=== PATIENT | female | born 1980 | race Caucasian/White ===

== ENCOUNTER 2016-04-28 16:04 | Emergency (ER) | payer BC ==
[2016-04-28] MEDS ORDERED: ASPIRIN 81 MG TABLET, CHEWABLE PO ONE (16:40)
--- NOTE | 2016-04-28 16:40 | ER Document Report ---
ED Medical Screen (RME) - General Stated Complaint: VOMITING/CHEST PAIN Time seen by provider: 16:36 Mode of Arrival: Wheelchair Information source: Patient Notes: 36-year-old female presents to ED for diarrhea 4 today chest pain 1/5 since 2: 30 PM. States that she is chest pain improved greatly after she vomited She states she started vomiting 5 since she's been to the ED. She states she also has a headache 5/5 that started last night. Last menstrual period 04/20/2016. Denies history of reflux or stomach ulcers. I have greeted and performed a rapid initial assessment of this patient. A comprehensive ED assessment and evaluation of the patient, analysis of test results and completion of medical decision making process will be conducted by an additional ED providers. TRAVEL OUTSIDE OF THE [place] IN LAST 30 DAYS: No - Related Data Allergies/Adverse Reactions: amoxicillin [Amoxicillin] Allergy (Mild, Verified 04/28/16 16:36) Penicillins Allergy (Mild, Verified 04/28/16 16:36) Past Medical History - Past Medical History Cardiac Medical History: Reports: Hx Hypertension Denies: Hx Coronary Artery Disease Pulmonary Medical History: Reports: Hx Asthma - as a child Endocrine Medical History: Denies: Hx Diabetes Mellitus Type 1, Hx Diabetes Mellitus Type 2 Renal/ Medical History: Reports: Hx Ovarian Cysts Past Surgical History: Reports: Hx Appendectomy, Hx Gynecologic Surgery - ovarian cyst removal - Immunizations Immunizations up to date: Yes Hx Diphtheria, Pertussis, Tetanus Vaccination: Yes Physical Exam - Vital signs Vitals: Temp Pulse Resp BP Pulse Ox 99.5 F 99 18 107/61 100 04/28/16 16:20 04/28/16 16:20 04/28/16 16:20 04/28/16 16:20 04/28/16 16:20 Course - Vital Signs Vital signs: Temp Pulse Resp BP Pulse Ox 99.5 F 99 18 107/61 100 04/28/16 16:20 04/28/16 16:20 04/28/16 16:20 04/28/16 16:20 04/28/16 16:20
[2016-04-28] MEDS ORDERED: FAMOTIDINE 20 MG TABLET PO ONE (16:41)
[2016-04-28] MEDS ORDERED: ONDANSETRON 4 MG TAB.RAPDIS PO ONE (16:41)
[2016-04-28 17:09] LABS: ABSOLUTE LYMPHOCYTES (AUTO) 0.3 10^3/uL (0.5-4.7); ABSOLUTE NEUT (AUTO) 4.3 10^3/uL (1.7-8.2); BASOPHILS % (AUTO) 0.1 % (0-2); EOSINOPHILS % (AUTO) 0.1 % (0-6); HEMATOCRIT 38.4 % (36.0-47.0); HEMOGLOBIN 12.9 g/dL (12.0-15.5); HGB HCT DIFFERENCE 0.3; LYMPHOCYTES % (AUTO) 5.9 % (13-45); MEAN CORPUSCULAR HEMOGLOBIN 29.4 pg (27.0-33.4); MEAN CORPUSCULAR HGB CONC 33.7 g/dL (32.0-36.0); MEAN CORPUSCULAR VOLUME 87 fl (80-97); MONOCYTES % (AUTO) 0.5 % (3-13); RED CELL DISTRIBUTION WIDTH 13.5 % (11.5-14.0); SEGMENTED NEUTROPHILS % (AUTO) 93.4 % (42-78); WHITE BLOOD COUNT 4.6 10^3/uL (4.0-10.5)
[2016-04-28 17:32] LABS: ALANINE AMINOTRANSFERASE 32 U/L (9-52); ALBUMIN 4.1 g/dL (3.5-5.0); ALKALINE PHOSPHATASE 65 U/L (38-126); ANION GAP 8 (5-19); ASPARTATE AMINO TRANSFERASE 33 U/L (14-36); BILIRUBIN,TOTAL 0.7 mg/dL (0.2-1.3); BLOOD UREA NITROGEN 7 mg/dL (7-20); CALCIUM 9.6 mg/dL (8.4-10.2); CARBON DIOXIDE 28 mmol/L (22-30); CHLORIDE 102 mmol/L (98-107); CREATINE KINASE 144 U/L (30-135); GLUCOSE 98 mg/dL (75-110); LIPASE 73.8 U/L (23-300); MAGNESIUM 1.5 mg/dL (1.6-2.3); POTASSIUM 4.1 mmol/L (3.6-5.0); SODIUM 138.1 mmol/L (137-145); TOTAL PROTEIN 6.5 g/dL (6.3-8.2)
--- NOTE | 2016-04-28 17:34 | ER Document Report ---
ED General - General Chief Complaint: Nausea/Vomiting/Diarrhea Stated Complaint: VOMITING/CHEST PAIN Time seen by provider: 17:20 Mode of Arrival: Wheelchair Information source: Patient Notes: 36-year-old female who reports diffuse body aches and mild headache beginning last night then 4 episodes of diarrhea earlier today. Further prior arrival she developed a sensation of throbbing in her lower chest that resolved after she vomited once here. She reports nausea feels better now she has had no further diarrhea since arrival here. She denies fever, chills, cough, shortness of breath, earache, sore throat, abdominal pain, back pain, hematemesis, hematochezia, or melena. Physical Exam: General: Alert, appears well. HEENT: Normocephalic. Atraumatic. PERRLA. Extraocular movements intact. Oropharynx clear. Neck: Supple. Non-tender. Respiratory: No respiratory distress. Clear and equal breath sounds bilaterally. Cardiovascular: Regular rate and rhythm. Abdominal: Normal Inspection. Soft, non-tender. No distension. Normal Bowel Sounds. Back: Non-tender. No deformity or step off. Extremities: Moves all four extremities. Upper extremities: Normal inspection. Non-tender. Normal color. Normal ROM. Normal temperature. Lower extremities: Normal inspection. Non-tender. No edema. Normal color. Normal ROM. Normal temperature. Neurological: Speech clear mentation normal carriage rider strength 5 out of 5 equal both upper extremities motor function 5 out of 5 equal both lower extremities Psychological: Normal affect. Normal Mood. Skin: Warm. Dry. Normal color. TRAVEL OUTSIDE OF THE [place] IN LAST 30 DAYS: No - Related Data Allergies/Adverse Reactions: amoxicillin [Amoxicillin] Allergy (Mild, Verified 04/28/16 16:36) Penicillins Allergy (Mild, Verified 04/28/16 16:36) Past Medical History - General Information source: Patient - Social History Smoking Status: Never Smoker Chew tobacco use (# tins/day): No Frequency of alcohol use: None Drug Abuse: None Family History: Arthritis, CAD, DM, Hypertension Patient has suicidal ideation: No Patient has homicidal ideation: No - Past Medical History Cardiac Medical History: Reports: Hx Hypertension Denies: Hx Coronary Artery Disease Pulmonary Medical History: Reports: Hx Asthma - as a child Endocrine Medical History: Denies: Hx Diabetes Mellitus Type 1, Hx Diabetes Mellitus Type 2 Renal/ Medical History: Reports: Hx Ovarian Cysts. Denies: Hx Peritoneal Dialysis Past Surgical History: Reports: Hx Appendectomy, Hx Gynecologic Surgery - ovarian cyst removal - Immunizations Immunizations up to date: Yes Hx Diphtheria, Pertussis, Tetanus Vaccination: Yes Review of Systems - Review of Systems Constitutional: See HPI, Malaise EENT: denies: Ear pain, Throat pain Cardiovascular: See HPI. denies: Dyspnea, Syncope Respiratory: denies: Cough, Short of breath Gastrointestinal: denies: Abdominal pain, Blood in vomit, Black stools, Rectal bleeding Genitourinary: denies: Burning, Dysuria Female Genitourinary: denies: Vaginal discharge, Vaginal bleeding Musculoskeletal: See HPI. denies: Back pain Skin: denies: Rash Hematologic/Lymphatic: denies: Swollen glands Neurological/Psychological: denies: Weakness, Numbness Physical Exam - Vital signs Vitals: Temp Pulse Resp BP Pulse Ox 99.5 F 99 18 107/61 100 04/28/16 16:20 04/28/16 16:20 04/28/16 16:20 04/28/16 16:20 04/28/16 16:20 Course - Re-evaluation Re-evalutation: 04/28/16 18:15 Patient complains of chest pain but symptoms are not remotely suspicious for acute coronary syndrome. Believe this is related to gastric irritation from a viral gastroenteritis. She will be prescribed Phenergan for nausea and instructed to use [id number] regimens for diarrhea and will provide her with outpatient physician follow-up - Vital Signs Vital signs: Temp Pulse Resp BP Pulse Ox 99.5 F 99 18 107/61 100 04/28/16 16:20 04/28/16 16:20 04/28/16 16:20 04/28/16 16:20 04/28/16 16:20 - Laboratory Result Diagrams: 04/28/16 16:45 04/28/16 16:45 Laboratory results interpreted by me: 04/28/16 04/28/16 16:45 16:45 Seg Neutrophils % 93.4 H Lymphocytes % 5.9 L Monocytes % 0.5 L Absolute Lymphocytes 0.3 L Absolute Monocytes 0.0 L Magnesium 1.5 L Creatine Kinase 144 H - Diagnostic Test Radiology reviewed: Image reviewed, Reports reviewed - EKG Interpretation by Me Additional EKG results interpreted by me: 04/28/16 17:38 EKG reviewed by myself shows sinus rhythm at 90 with no acute changes Discharge - Discharge Clinical Impression: Gastroenteritis Condition: Stable Disposition: HOME, SELF-CARE Instructions: Gastroenteritis (adult) ([facility]) Prescriptions: Promethazine HCl [Phenergan 25 mg Tablet] 1 tab PO Q6H PRN #15 tablet PRN Reason: Forms: Return to Work Referrals: [facility] [Provider Group] - Follow up as needed
[2016-04-28 17:43] LABS: CREATINE KINASE MB 0.99 ng/mL (<4.55)
[2016-04-28 17:46] LABS: TROPONIN I < 0.012 ng/mL
[2016-04-28 18:44] VITALS: BP 96/69
--- NOTE | 2016-04-29 05:37 | EKG REPORT ---
SEVERITY:- NORMAL ECG - SINUS RHYTHM : Confirmed by: Bobbi Calderon MD 29-Apr-2016 05:37:04
== END 2016-04-28 18:40 | disposition home or self-care (01) ==
LOC: ER 16:04
DX: K52.9 Noninfective gastroenteritis and colitis, unspecified (principal); R11.2 Nausea with vomiting, unspecified; R19.7 Diarrhea, unspecified; R07.9 Chest pain, unspecified; R51 Headache; R53.81 Other malaise; I10 Essential (primary) hypertension; Z88.0 Allergy status to penicillin
CPT/HCPCS: 93005; 99284; 36415; 82553; 82550; 83690; 83735; 84703; 85025; 80053; 84484; 71020; 93010; S0119

== ENCOUNTER 2016-06-14 00:40 | Emergency (ER) | payer BC ==
--- NOTE | 2016-06-14 03:11 | ER Document Report ---
ED General - General Chief Complaint: Toothache Stated Complaint: TOOTHACHE Mode of Arrival: Ambulatory Information source: Patient Notes: 36-year-old female presents with complaints of dental pain. Patient notes she gets canker sores often, a temporary crown fell off on the left upper molar, denies any fevers or chills denies any bad taste in her mouth, denies any swelling TRAVEL OUTSIDE OF THE [place] IN LAST 30 DAYS: No - HPI Onset: Last week Onset/Duration: Persistent Quality of pain: Achy Severity: Mild Pain Level: 1 Associated symptoms: Other Exacerbated by: Denies Relieved by: Denies Similar symptoms previously: Yes Recently seen / treated by doctor: Yes - Related Data Allergies/Adverse Reactions: amoxicillin [Amoxicillin] Allergy (Mild, Verified 04/28/16 16:36) Penicillins Allergy (Mild, Verified 04/28/16 16:36) Past Medical History - Social History Smoking Status: Never Smoker Cigarette use (# per day): No Chew tobacco use (# tins/day): No Smoking Education Provided: No Family History: Arthritis, CAD, DM, Hypertension - Past Medical History Cardiac Medical History: Reports: Hx Hypertension Denies: Hx Coronary Artery Disease Pulmonary Medical History: Reports: Hx Asthma - as a child Endocrine Medical History: Denies: Hx Diabetes Mellitus Type 1, Hx Diabetes Mellitus Type 2 Renal/ Medical History: Reports: Hx Ovarian Cysts. Denies: Hx Peritoneal Dialysis Past Surgical History: Reports: Hx Appendectomy, Hx Gynecologic Surgery - ovarian cyst removal - Immunizations Immunizations up to date: Yes Hx Diphtheria, Pertussis, Tetanus Vaccination: Yes Review of Systems - Review of Systems Notes: REVIEW OF SYSTEMS: CONSTITUTIONAL : Denies fever, chills, or sweats. Denies recent illness. EENT: Admits to dental pain CARDIOVASCULAR: Denies chest pain. Denies palpitations or racing or irregular heart beat. Denies ankle edema. RESPIRATORY: Denies cough, cold, or chest congestion. Denies shortness of breath, difficulty breathing, or wheezing. GASTROINTESTINAL: Denies abdominal pain or distention. Denies nausea, vomiting , or diarrhea. Denies blood in vomitus, stools, or per rectum. Denies black, tarry stools. Denies constipation. GENITOURINARY: Denies difficulty urinating, painful urination, burning, frequency, blood in urine, or discharge. FEMALE GENITOURINARY: Denies vaginal bleeding, heavy or abnormal periods, irregular periods. Denies vaginal discharge or odor. MUSCULOSKELETAL: Denies back or neck pain or stiffness. Denies joint pain or swelling. SKIN: Denies rash, lesions or sores. HEMATOLOGIC : Denies easy bruising or bleeding. LYMPHATIC: Denies swollen, enlarged glands. NEUROLOGICAL: Denies confusion or altered mental status. Denies passing out or loss of consciousness. Denies dizziness or lightheadedness. Denies headache. Denies weakness or paralysis or loss of use of either side. Denies problems with gait or speech. Denies sensory loss, numbness, or tingling. Denies seizures. PSYCHIATRIC: Denies anxiety or stress. Denies depression, suicidal ideation, or homicidal ideation. ALL OTHER SYSTEMS REVIEWED AND NEGATIVE. Dictation was performed using [employer] voice recognition software PHYSICAL EXAMINATION: GENERAL: Well-appearing, well-nourished and in no acute distress. HEAD: Atraumatic, normocephalic. EYES: Pupils equal round and reactive to light, extraocular movements intact, conjunctiva are normal. ENT: No abscess no swelling no tenderness on palpation of the teeth, canker sore noted at the opening of the mouth near the left upper gums NECK: Normal range of motion, supple without lymphadenopathy LUNGS: Breath sounds clear to auscultation bilaterally and equal. No wheezes rales or rhonchi. HEART: Regular rate and rhythm without murmurs ABDOMEN: Soft, nontender, nondistended abdomen. No guarding, no rebound. No masses appreciated. Female : deferred Musculoskeletal: Normal range of motion, no pitting or edema. No cyanosis. NEUROLOGICAL: Cranial nerves grossly intact. Normal speech, normal gait. Normal sensory, motor exams PSYCH: Normal mood, normal affect. SKIN: Warm, Dry, normal turgor, no rashes or lesions noted. Physical Exam - Vital signs Vitals: Temp Pulse Resp BP Pulse Ox 98.4 F 76 20 137/81 H 100 06/14/16 00:51 06/14/16 00:51 06/14/16 00:51 06/14/16 00:51 06/14/16 00:51 Course - Re-evaluation Re-evalutation: 06/14/16 03:19 Patient will be started on antibiotics given chlorhexidine mouthwash and pain control otherwise looks well is in no distress. Very strict return precautions provided to the patient regarding airway protection and infectious process After performing a Medical Screening Examination, I estimate there is LOW risk for a DEEP SPACE INFECTION (e.g., DUYEN'S ANGINA OR RETROPHARYNGEAL ABSCESS), MENINGITIS, INTRACRANIAL HEMORRHAGE, or AIRWAY COMPROMISE, thus I consider the discharge disposition reasonable. Also, there is no evidence or peritonitis, sepsis, or toxicity. I have reevaluated this patient multiple times and no significant life threatening changes are noted. The patient and I have discussed the diagnosis and risks, and we agree with discharging home with close follow-up with the understanding that symptoms and presentations can change. We also discussed returning to the Emergency Department immediately if new or worsening symptoms occur. We have discussed the symptoms which are most concerning (e.g., changing or worsening pain, trouble swallowing or breathing, neck stiffness or fever) that necessitate immediate return. - Vital Signs Vital signs: Temp Pulse Resp BP Pulse Ox 98.4 F 76 20 137/81 H 100 06/14/16 00:51 06/14/16 00:51 06/14/16 00:51 06/14/16 00:51 06/14/16 00:51 Discharge - Discharge Clinical Impression: Canker sore, Pain, dental Condition: Stable Disposition: HOME, SELF-CARE Instructions: Toothache ([facility]) Additional Instructions: Follow up with your physician tomorrow for further care or return to the ED IMMEDIATELY if symptoms worsen or new concerns occur. If you cannot afford to follow up with your primary care physician a list of low cost clinics have been provided at the end of your discharge papers as well. Prescriptions: Acetaminophen with Codeine [Tylenol #3 Tablet] 1 each PO Q4HP PRN #10 tablet PRN Reason: Chlorhexidine Gluconate 15 ml MM BID 10 Days Clindamycin HCl 300 mg PO Q6 #40 capsule
[2016-06-14 03:19] VITALS: BP 138/90
== END 2016-06-14 03:19 | disposition home or self-care (01) ==
LOC: ER 00:40
DX: K08.89 Other specified disorders of teeth and supporting structures (principal); K12.0 Recurrent oral aphthae; I10 Essential (primary) hypertension; Z98.890 Other specified postprocedural states; Z88.0 Allergy status to penicillin
CPT/HCPCS: 99282

== ENCOUNTER 2017-01-14 15:14 | Emergency (ER) | payer BC ==
[2017-01-14 15:46] VITALS: BP 108/74
--- NOTE | 2017-01-14 16:19 | ER Document Report ---
HPI - HPI Pain Level: 3 Notes: Patient is a 37-year-old female no significant past medical history presents ED complaining of nasal congestion, discharge, postnasal drip, irritated throat from the drip, sinus pressure, occasional dry nonproductive cough 3 weeks. Patient states that she has been using [id number] meds with minimal relief. Patient states that her symptoms were improving, but started to worsen over the last several days. Patient states that she still eating and drinking without difficulties. She still urinating normally and having normal bowel movements. Patient states that otherwise she feels well. She has an allergy to penicillins which causes angioedema. Denies any headache, fever, neck pain, chest pain, palpitations, syncope, shortness of breath, wheeze, dyspnea, abdominal pain, nausea/vomiting/diarrhea, urinary retention, dysuria, hematuria , or rash. - ROS Notes: REVIEW OF SYSTEMS: CONSTITUTIONAL : Denies fever, chills, or sweats. Denies recent illness. EENT: see hpi CARDIOVASCULAR: Denies chest pain. Denies palpitations or racing or irregular heart beat. Denies ankle edema. RESPIRATORY: see hpi. Denies shortness of breath, difficulty breathing, or wheezing. GASTROINTESTINAL: Denies abdominal pain or distention. Denies nausea, vomiting , or diarrhea. GENITOURINARY: Denies difficulty urinating, painful urination, burning, frequency, blood in urine, or discharge. MUSCULOSKELETAL: Denies back or neck pain or stiffness. Denies joint pain or swelling. SKIN: Denies rash, lesions or sores. NEUROLOGICAL: Denies confusion or altered mental status. Denies passing out or loss of consciousness. Denies dizziness or lightheadedness. Denies headache. Denies weakness or paralysis or loss of use of either side. Denies problems with gait or speech. Denies sensory loss, numbness, or tingling. ALL OTHER SYSTEMS REVIEWED AND NEGATIVE. Dictation was performed using [employer] voice recognition software - REPRODUCTIVE Reproductive: DENIES: : Past Medical History - Social History Smoking Status: Never Smoker Family History: Arthritis, CAD, DM, Hypertension - Past Medical History Cardiac Medical History: Reports: Hx Hypertension Denies: Hx Coronary Artery Disease Pulmonary Medical History: Reports: Hx Asthma - as a child Endocrine Medical History: Denies: Hx Diabetes Mellitus Type 1, Hx Diabetes Mellitus Type 2 Renal/ Medical History: Reports: Hx Ovarian Cysts. Denies: Hx Peritoneal Dialysis Past Surgical History: Reports: Hx Appendectomy, Hx Gynecologic Surgery - ovarian cyst removal - Immunizations Immunizations up to date: Yes Hx Diphtheria, Pertussis, Tetanus Vaccination: Yes Vertical Provider Document - CONSTITUTIONAL Agree With Documented VS: Yes Notes: PHYSICAL EXAMINATION: GENERAL: Well-appearing, well-nourished and in no acute distress. A&ox4 HEAD: Atraumatic, normocephalic. EYES: Pupils equal round and reactive to light, extraocular movements intact, sclera anicteric, conjunctiva are normal. ENT: EAC clear b/l. TM's intact b/l without erythema, fluid, or perforation. Nares patent and with yellow discharge. oropharynx clear without exudates. No tonsilar hypertrophy or erythema. Moist mucous membranes. + maxillary sinus tenderness. Uvula midline. No palatine shift. No tongue protrusion. NECK: Normal range of motion, supple without lymphadenopathy. No rigidity/ meningismus. LUNGS: Breath sounds clear to auscultation bilaterally and equal. No wheezes rales or rhonchi. HEART: Regular rate and rhythm without murmurs, rubs, gallops. Extremities: No cyanosis, clubbing, or edema b/l. Peripheral pulses 2+. Capillary refill less than 3 seconds. NEUROLOGICAL: Cranial nerves grossly intact. Normal speech, normal gait. Normal sensory, motor exams PSYCH: Normal mood, normal affect. SKIN: Warm, Dry, normal turgor, no rashes or lesions noted. - INFECTION CONTROL TRAVEL OUTSIDE OF THE [place] IN LAST 30 DAYS: No - RESPIRATORY O2 Sat by Pulse Oximetry: 100 Course - Re-evaluation Re-evalutation: 01/14/17 16:18 Patient is an afebrile, well-hydrated, 37-year-old female who presents the ED with acute sinusitis 3 weeks. Vitals stable. PE is otherwise unremarkable. Patient states that she has an intolerance to doxycycline and is allergic to penicillins. I will send her home with prescription for Zithromax. Low suspicion for any meningitis, sepsis, peritonsillar/pharyngeal abscess, respiratory compromise, Musa's, or other emergent systemic condition at this time. Patient is aware this condition can change from initial presentation and she needs to monitor symptoms closely. Conservative measures otherwise for symptoms. Recheck with your PCM in 3-5 days. Return to the ED with any worsening/concerning symptoms otherwise as reviewed in discharge. Patient is in agreement. - Vital Signs Vital signs: Temp Pulse Resp BP Pulse Ox 98.8 F 77 20 108/74 100 01/14/17 15:45 01/14/17 15:45 01/14/17 15:45 01/14/17 15:45 01/14/17 15:45 Discharge - Discharge Clinical Impression: Acute sinusitis Qualifiers: Sinusitis location: maxillary Recurrence: non-recurrent Qualified Code(s): J01.00 - Acute maxillary sinusitis, unspecified Condition: Stable Disposition: HOME, SELF-CARE Instructions: Sinusitis ([facility]), Azithromycin ([facility]) Additional Instructions: Maintain adequate fluid intake Take meds as directed tylenol/ibuprofen as needed over the counter cold medication as needed for symptoms Humidified air may help F/u: with your PCM in 3-5 days for a recheck Return to the ED with any fever, worsening pain, chest pain, palpitations, syncope, worsening SOLANO, neck pain/stiffness, shortness of breath, wheezing, drooling, trouble swallowing/breathing, abdominal pain, n/v/d, rash, or worsening/concerning symptoms otherwise. Prescriptions: Azithromycin [Zithromax 250 mg Tablet] 250 mg PO ASDIR PRN #6 tablet PRN Reason: Referrals: [facility] [Provider Group] - Follow up as needed [facility] [Provider Group] - Follow up as needed
== END 2017-01-14 16:38 | disposition home or self-care (01) ==
LOC: ER 15:14
DX: J01.00 Acute maxillary sinusitis, unspecified (principal); R05 Cough; I10 Essential (primary) hypertension; Z88.0 Allergy status to penicillin
CPT/HCPCS: 99283

== ENCOUNTER 2017-05-29 23:10 | Emergency (ER) | payer BC ==
[2017-05-29] MEDS ORDERED: LIDOCAINE 1% INJ-PF (10 MG/ML) 30 ML SDV INJ ONE (23:46)
--- NOTE | 2017-05-29 23:53 | ER Document Report ---
ED Wound - General Chief Complaint: Finger laceration Stated Complaint: FINGER INJURY Time Seen by Provider: 05/29/17 23:43 Notes: Patient is a 37 year female presenting to the emergency department with complaint of laceration to her right fifth finger. Patient states that just prior to arrival she was opening a can when her hand slipped and she cut the dorsal aspect of her finger with the lid of the can. Patient reports that her last tetanus shot was given here at [facility] in 2013. Patient reports pain 2 out of 5, denies any numbness or tingling. Patient denies any other symptoms. Patient denies any significant past medical or surgical history. TRAVEL OUTSIDE OF THE [place] IN LAST 30 DAYS: No - Related Data Allergies/Adverse Reactions: amoxicillin [Amoxicillin] Allergy (Mild, Verified 01/14/17 15:15) Penicillins Allergy (Mild, Verified 01/14/17 15:15) Past Medical History - General Information source: Patient - Social History Smoking Status: Never Smoker Frequency of alcohol use: None Drug Abuse: None Family History: Arthritis, CAD, DM, Hypertension - Past Medical History Cardiac Medical History: Reports: None, Hx Hypertension Denies: Hx Coronary Artery Disease Pulmonary Medical History: Reports: Hx Asthma - as a child EENT Medical History: Reports: None Neurological Medical History: Reports: None Endocrine Medical History: Reports: None. Denies: Hx Diabetes Mellitus Type 1, Hx Diabetes Mellitus Type 2 Renal/ Medical History: Reports: Hx Ovarian Cysts. Denies: Hx Peritoneal Dialysis Malignancy Medical History: Reports: None GI Medical History: Reports: None Musculoskeltal Medical History: Reports None Psychiatric Medical History: Reports: None Traumatic Medical History: Reports: None Infectious Medical History: Reports: None Past Surgical History: Reports: Hx Appendectomy, Hx Gynecologic Surgery - ovarian cyst removal - Immunizations Immunizations up to date: Yes Hx Diphtheria, Pertussis, Tetanus Vaccination: Yes Review of Systems - Review of Systems Constitutional: No symptoms reported EENT: No symptoms reported Cardiovascular: No symptoms reported Respiratory: No symptoms reported Gastrointestinal: No symptoms reported Genitourinary: No symptoms reported Female Genitourinary: No symptoms reported Musculoskeletal: No symptoms reported Skin: Other - 3cm laceration right 5th digit Physical Exam - Notes Notes: PHYSICAL EXAMINATION: GENERAL: Well-appearing, well-nourished and in no acute distress. HEAD: Atraumatic, normocephalic. EYES: Pupils equal round and reactive to light, extraocular movements intact, conjunctiva are normal. ENT: Nares patent, oropharynx clear without exudates. Moist mucous membranes. NECK: Normal range of motion, supple without lymphadenopathy LUNGS: Breath sounds clear to auscultation bilaterally and equal. No wheezes rales or rhonchi. HEART: Regular rate and rhythm without murmurs ABDOMEN: Soft, nontender, nondistended abdomen. Female : deferred Musculoskeletal: Normal range of motion. NEUROLOGICAL: Cranial nerves grossly intact. Normal speech, normal gait. Normal sensory, motor exams distal to laceration to right 5th digit. PSYCH: Normal mood, normal affect. SKIN: Warm, Dry, normal turgor, no rashes or lesions noted. 3 cm laceration to right 5th digit. Course - Re-evaluation Re-evalutation: Patient's laceration was repaired with a digital block and 6 sutures. Wound approximated well. Neurovascular exam normal after repair and cap Refill less than 3 seconds. Patient will be started on prophylactic antibiotic. Procedures - Laceration/Wound Repair Right 5th digit Wound length (cm): 3 Wound's Depth, Shape: Linear Anesthetic type: 1% Lidocaine Volume Anesthetic (mLs): 4 Wound explored: Clean, No foreign body removed Wound Debrided: Minimal Wound Repaired With: Sutures Suture Size/Type: 5:0 Number of Sutures: 6 Post-procedure NV exam normal: Yes Complications: No Discharge - Discharge Clinical Impression: Laceration of finger Qualifiers: Encounter type: initial encounter Finger: little finger Damage to nail status: without damage Foreign body presence: without foreign body Laterality: right Qualified Code(s): S61.216A - Laceration without foreign body of right little finger without damage to nail, initial encounter Condition: Stable Disposition: HOME, SELF-CARE Instructions: Antibiotic Ointment Protection ([facility]), Laceration Care ([facility]), Prophylactic Antibiotic ([facility]), Soap Cleansing ([facility]) Additional Instructions: Laceration Care Your laceration has been sutured to keep the skin edges aligned during healing. Please follow-up with her primary care provider in 7-10 days for suture removal. Keep the wound and dressing clean. Unless you were told otherwise, you may shower daily, blotting the wound dry with a clean, unused towel. At other times, If the dressing gets wet or blood soaked, remove it and blot the wound dry, then reapply a new dressing. Unless you were instructed otherwise, dressings should be changed at least daily. If any signs of infection occur (swelling, redness, increasing tenderness, red streaks, tender lumps in the armpit or groin above the laceration, or fever) , see the doctor immediately. Prescriptions: Doxycycline Hyclate 100 mg PO BID #14 capsule
== END 2017-05-30 00:55 | disposition home or self-care (01) ==
LOC: ER 23:10
PROC: 0HQFXZZ Repair Right Hand Skin, External Approach (ICD-10-PCS; principal; 2017-05-29)
DX: S61.216A Laceration without foreign body of right little finger without damage to nail, initial encounter (principal); W26.8XXA Contact with other sharp object(s), not elsewhere classified, initial encounter; Z88.0 Allergy status to penicillin
CPT/HCPCS: 99282; 12002; J3490

== ENCOUNTER 2017-11-30 10:07 | Emergency (ER) | payer BC ==
--- NOTE | 2017-11-30 10:30 | ER Document Report ---
ED Medical Screen (RME) - General Chief Complaint: Sore Throat Stated Complaint: COLD SYMPTOMS Time Seen by Provider: 11/30/17 10:21 Notes: 37 years old female presents today with sore throat nasal congestion going on for the last 2 weeks, she noted a lump on the left side of the neck close to the larynx 2 days ago. Denies any fever chills productive cough. Denies any difficulty in breathing or wheezing. Denies any other constitutional symptoms. Past medical history endometriosis disease, she had a tumor develop secondary to cat scratch disease as a child which was removed. On examination-1.5 x 2 cm hard nodule lump noted at the cricocartilage region on the left side. TRAVEL OUTSIDE OF THE [place] IN LAST 30 DAYS: No - Related Data Allergies/Adverse Reactions: amoxicillin [Amoxicillin] Allergy (Mild, Verified 11/30/17 10:08) Penicillins Allergy (Mild, Verified 11/30/17 10:08) Past Medical History - Past Medical History Cardiac Medical History: Reports: Hx Hypertension Denies: Hx Coronary Artery Disease Pulmonary Medical History: Reports: Hx Asthma - as a child Endocrine Medical History: Denies: Hx Diabetes Mellitus Type 1, Hx Diabetes Mellitus Type 2 Renal/ Medical History: Reports: Hx Ovarian Cysts. Denies: Hx Peritoneal Dialysis Past Surgical History: Reports: Hx Appendectomy, Hx Gynecologic Surgery - ovarian cyst removal - Immunizations Immunizations up to date: Yes Hx Diphtheria, Pertussis, Tetanus Vaccination: Yes Physical Exam - Vital signs Vitals: Temp Pulse Resp BP Pulse Ox 98.6 F 76 16 106/60 100 11/30/17 10:12 11/30/17 10:12 11/30/17 10:12 11/30/17 10:12 11/30/17 10:12 Course - Vital Signs Vital signs: Temp Pulse Resp BP Pulse Ox 98.6 F 76 16 106/60 100 11/30/17 10:12 11/30/17 10:12 11/30/17 10:12 11/30/17 10:12 11/30/17 10:12
[2017-11-30] MEDS ORDERED: METHYLPREDNISOLONE INJ 125 MG/2 ML SDV IV ONE (10:49)
[2017-11-30] MEDS ORDERED: DIPHENHYDRAMINE HCL 50 MG/ML VIAL IV ONE (10:49)
[2017-11-30 11:03] LABS: ABSOLUTE EOSINOPHILS # (AUTO) 0.2 10^3/uL (0.0-0.6); ABSOLUTE LYMPHOCYTES (AUTO) 1.6 10^3/uL (0.5-4.7); ABSOLUTE MONOCYTES (AUTO) 0.4 10^3/uL (0.1-1.4); ABSOLUTE NEUT (AUTO) 2.3 10^3/uL (1.7-8.2); BASOPHILS % (AUTO) 0.5 % (0-2); EOSINOPHILS % (AUTO) 3.5 % (0-6); HEMATOCRIT 40.3 % (36.0-47.0); HEMOGLOBIN 13.5 g/dL (12.0-15.5); LYMPHOCYTES % (AUTO) 36.7 % (13-45); MEAN CORPUSCULAR HEMOGLOBIN 29.7 pg (27.0-33.4); MEAN CORPUSCULAR HGB CONC 33.5 g/dL (32.0-36.0); MEAN CORPUSCULAR VOLUME 89 fl (80-97); MONOCYTES % (AUTO) 7.9 % (3-13); PLATELET COUNT 236 10^3/uL (150-450); RED BLOOD COUNT 4.54 10^6/uL (3.72-5.28); RED CELL DISTRIBUTION WIDTH 13.9 % (11.5-14.0); SEGMENTED NEUTROPHILS % (AUTO) 51.4 % (42-78); TOTAL CELLS COUNTED % (AUTO) 100 %; WHITE BLOOD COUNT 4.4 10^3/uL (4.0-10.5)
--- NOTE | 2017-11-30 11:26 | RADIOLOGY REPORT (SQ) ---
EXAM DESCRIPTION: CHEST 2 VIEWS COMPLETED DATE/TIME: 11/30/2017 11:18 am REASON FOR STUDY: Cough COMPARISON: None. EXAM PARAMETERS: NUMBER OF VIEWS: two views TECHNIQUE: Digital Frontal and Lateral radiographic views of the chest acquired. RADIATION DOSE: NA LIMITATIONS: none FINDINGS: LUNGS AND PLEURA: No opacities, masses or pneumothorax. No pleural effusion. MEDIASTINUM AND HILAR STRUCTURES: No masses or contour abnormalities. HEART AND VASCULAR STRUCTURES: Heart normal size. No evidence for failure. BONES: No acute findings. HARDWARE: None in the chest. OTHER: No other significant finding. IMPRESSION: NO ACUTE RADIOGRAPHIC FINDING IN THE CHEST. TECHNICAL DOCUMENTATION: JOB ID: [id number] [employer]- All Rights Reserved Reading location - IP/workstation name: [email or web address]
[2017-11-30 11:31] LABS: ALANINE AMINOTRANSFERASE 18 U/L (9-52); ALBUMIN 4.1 g/dL (3.5-5.0); ALKALINE PHOSPHATASE 46 U/L (38-126); ANION GAP 12 (5-19); ASPARTATE AMINO TRANSFERASE 18 U/L (14-36); BILIRUBIN,DIRECT 0.1 mg/dL (0.0-0.4); BILIRUBIN,TOTAL 0.6 mg/dL (0.2-1.3); BLOOD UREA NITROGEN 7 mg/dL (7-20); CALCIUM 9.5 mg/dL (8.4-10.2); CARBON DIOXIDE 26 mmol/L (22-30); CHLORIDE 102 mmol/L (98-107); GLUCOSE 106 mg/dL (75-110); POTASSIUM 3.6 mmol/L (3.6-5.0); SODIUM 139.9 mmol/L (137-145); TOTAL PROTEIN 6.7 g/dL (6.3-8.2)
--- NOTE | 2017-11-30 11:31 | ER Document Report ---
ED ENT - General Chief Complaint: Sore Throat Stated Complaint: COLD SYMPTOMS Time Seen by Provider: 11/30/17 10:21 Mode of Arrival: Ambulatory Information source: Patient Notes: Patient presents complaining of sore throat for the past 2 weeks. Patient states she had a fever last week but none since then. Patient states that yesterday she noticed a lump to the anterior aspect of her neck. Patient denies any previous history of any thyroid problems. TRAVEL OUTSIDE OF THE [place] IN LAST 30 DAYS: No - HPI Onset: Other - 2 weeks Onset/Duration: Persistent Quality of pain: Achy Pain Level: 3 Location of pain: Neck Associated symptoms: Sore throat. denies: Cough, Fever Similar symptoms previously: No Recently seen / treated by doctor: No - Related Data Allergies/Adverse Reactions: amoxicillin [Amoxicillin] Allergy (Mild, Verified 11/30/17 10:08) Penicillins Allergy (Mild, Verified 11/30/17 10:08) Past Medical History - General Information source: Patient - Social History Smoking Status: Never Smoker Chew tobacco use (# tins/day): No Frequency of alcohol use: Occasional Drug Abuse: None Occupation: [employer] Family History: Arthritis, CAD, DM, Hypertension Patient has suicidal ideation: No Patient has homicidal ideation: No - Past Medical History Cardiac Medical History: Reports: Hx Hypertension Denies: Hx Coronary Artery Disease Pulmonary Medical History: Reports: Hx Asthma - as a child Endocrine Medical History: Denies: Hx Diabetes Mellitus Type 1, Hx Diabetes Mellitus Type 2 Renal/ Medical History: Reports: Hx Ovarian Cysts. Denies: Hx Peritoneal Dialysis Psychiatric Medical History: Reports: Hx Depression - April 2017 Past Surgical History: Reports: Hx Appendectomy, Hx Gynecologic Surgery - ovarian cyst removal - Immunizations Immunizations up to date: Yes Hx Diphtheria, Pertussis, Tetanus Vaccination: Yes Review of Systems - Review of Systems Constitutional: No symptoms reported. denies: Fever EENT: Throat pain Cardiovascular: No symptoms reported Respiratory: No symptoms reported Gastrointestinal: No symptoms reported. denies: Vomiting Genitourinary: No symptoms reported Female Genitourinary: No symptoms reported Musculoskeletal: No symptoms reported Skin: No symptoms reported Hematologic/Lymphatic: No symptoms reported Neurological/Psychological: No symptoms reported Physical Exam - Vital signs Vitals: Temp Pulse Resp BP Pulse Ox 98.6 F 76 16 106/60 100 11/30/17 10:12 11/30/17 10:12 11/30/17 10:12 11/30/17 10:12 11/30/17 10:12 - General General appearance: Appears well, Alert In distress: None - HEENT Head: Normocephalic, Atraumatic Eyes: Normal Conjunctiva: Normal Nasal: Normal Mouth/Lips: Normal Mucous membranes: Normal Pharynx: Normal. No: Erythema, Tonsillar hypertrophy, Uvular edema, Potential airway comprom. Neck: Supple, Thyroid nodule - Left anterior aspect. No: Lymphadenopathy - Respiratory Respiratory status: No respiratory distress Chest status: Nontender Breath sounds: Normal. No: Rales, Rhonchi, Stridor, Wheezing Chest palpation: Normal - Cardiovascular Rhythm: Regular Heart sounds: S1 appreciated, S2 appreciated - Back Back: Normal, Nontender - Extremities General upper extremity: Normal inspection, Normal strength General lower extremity: Normal inspection, Normal strength - Neurological Neuro grossly intact: Yes Cognition: Normal [place] Coma Scale Eye Opening: Spontaneous Robin Coma Scale Verbal: Oriented Robin Coma Scale Motor: Obeys Commands Robin Coma Scale Total: 15 - Psychological Associated symptoms: Normal affect, Normal mood - Skin Skin Temperature: Warm Skin Moisture: Dry Skin Color: Normal Course - Re-evaluation Re-evalutation: 11/30/17 12:46 Patient advised of the CT scan findings. Patient advised that she will need to follow-up with a surgeon for further evaluation of thyroid nodule. Patient will be provided with outpatient follow-up information. - Vital Signs Vital signs: Temp Pulse Resp BP Pulse Ox 98.6 F 92 16 120/80 100 11/30/17 10:12 11/30/17 13:13 11/30/17 13:13 11/30/17 13:13 11/30/17 13:13 - Laboratory Result Diagrams: 11/30/17 10:45 11/30/17 10:45 Laboratory results interpreted by me: Labs- Entire Visit 11/30/17 11/30/17 11/30/17 10:38 10:45 10:45 WBC 4.4 RBC 4.54 Hgb 13.5 Hct 40.3 MCV 89 MCH 29.7 MCHC 33.5 RDW 13.9 Plt Count 236 Seg Neutrophils % 51.4 Lymphocytes % 36.7 Monocytes % 7.9 Eosinophils % 3.5 Basophils % 0.5 Absolute Neutrophils 2.3 Absolute Lymphocytes 1.6 Absolute Monocytes 0.4 Absolute Eosinophils 0.2 Absolute Basophils 0.0 ESR 9 Sodium 139.9 Potassium 3.6 Chloride 102 Carbon Dioxide 26 Anion Gap 12 BUN 7 Creatinine 0.71 Est GFR ( Amer) > 60 Est GFR (Non-Af Amer) > 60 Glucose 106 Calcium 9.5 Total Bilirubin 0.6 Direct Bilirubin 0.1 Neonat Total Bilirubin Not Reportable Neonat Direct Bilirubin Not Reportable Neonat Indirect Bili Not Reportable AST 18 ALT 18 Alkaline Phosphatase 46 Total Protein 6.7 Albumin 4.1 TSH Free T4 Free T3 pg/mL Monotest Group A Strep Rapid NEGATIVE 11/30/17 11/30/17 10:45 10:45 WBC RBC Hgb Hct MCV MCH MCHC RDW Plt Count Seg Neutrophils % Lymphocytes % Monocytes % Eosinophils % Basophils % Absolute Neutrophils Absolute Lymphocytes Absolute Monocytes Absolute Eosinophils Absolute Basophils ESR Sodium Potassium Chloride Carbon Dioxide Anion Gap BUN Creatinine Est GFR ( Amer) Est GFR (Non-Af Amer) Glucose Calcium Total Bilirubin Direct Bilirubin Neonat Total Bilirubin Neonat Direct Bilirubin Neonat Indirect Bili AST ALT Alkaline Phosphatase Total Protein Albumin TSH 1.58 Free T4 0.81 Free T3 pg/mL 3.61 Monotest NEGATIVE Group A Strep Rapid - Diagnostic Test Radiology reviewed: Image reviewed, Reports reviewed Discharge - Discharge Clinical Impression: Thyroid nodule, Sore throat Condition: Stable Disposition: HOME, SELF-CARE Instructions: Growth or Mass, Pending Workup ([facility]), Sore Throat ([facility]) Additional Instructions: Return immediately for any new or worsening symptoms Followup with your primary care provider, call tomorrow to make a followup appointment Follow-up with a general surgeon for further evaluation of thyroid nodule. You will need to have additional testing to confirm that this is not a cancerous type lesion. Prescriptions: Naproxen [Naprosyn 250 Nmg Tablet] 1 tab PO BID #14 tablet Forms: Return to Work Referrals: [facility] [Provider Group] - Follow up as needed [facility] [Provider Group] - Follow up tomorrow
[2017-11-30 11:50] LABS: ERYTHROCYTE SEDIMENTATION RATE 9 mm/hr (0-20)
[2017-11-30 12:06] LABS: FREE T3 3.61 pg/mL (2.77-5.27); FREE T4 (FREE THYROXINE) 0.81 ng/dL (0.78-2.19)
[2017-11-30 12:20] LABS: THYROID STIMULATING HORMONE 1.58 uIU/mL (0.47-4.68)
--- NOTE | 2017-11-30 12:22 | RADIOLOGY REPORT (SQ) ---
EXAM DESCRIPTION: CT SOFT TISSUE NECK WITH COMPLETED DATE/TIME: 11/30/2017 11:59 am REASON FOR STUDY: Neck mass COMPARISON: None. TECHNIQUE: Post IV contrasted scanning from skull base through lung apices with review of bone, soft tissue and lung windows. Reconstructed coronal and sagittal MPR images reviewed. All images stored on PACS. All CT scanners at this facility use dose modulation, iterative reconstruction, and/or weight based d osing when appropriate to reduce radiation dose to as low as reasonably achievable (ALARA). [facility]: Dose Right [facility]: CareDose [facility]: Dose Right [facility]: Teradose 4D [facility]: MirDeneg CONTRAST TYPE AND DOSE: contrast/concentration: Isovue 350.00 mg/ml; Total Contrast Delivered: 74.0 ml; Total Saline Delivered: 51.0 ml RENAL FUNCTION: None required. The patient is less than 50 years old. RADIATION DOSE: CT Rad equipment meets quality standard of care and radiation dose reduction techniq ues were employed. CTDIvol: 8.2 mGy. DLP: 248 mGy-cm. . LIMITATIONS: None. FINDINGS: SKULL BASE: Intact. MAJOR SALIVARY GLANDS: No solid or cystic masses. No inflammatory changes. LYMPHADENOPATHY: No adenopathy. MUCOSAL MASSES OR ASYMMETRY: No mucosal masses or asymmetry. LARYNX/CORDS: No abnormal findings. VASCULAR STRUCTURES: The major vessels are patent. LUNG APICES: Clear. BONES: Intact. THYROID: 1.8 cm partially calcified nodule in the left lobe. Slightly smaller colloid cyst along the left margin of the isthmus. PARANASAL SINUSES: Clear. OTHER: No other significant finding. IMPRESSION: Partially calcified solid left thyroid nodule. TECHNICAL DOCUMENTATION: JOB ID: [id number] Quality ID # [id number]: Final reports with documentation of one or more dose reduction techniques (e.g., Au tomated exposure control, adjustment of the mA and/or kV according to patient size, use of iterative reconstruction technique) 2010 [employer]- All Rights Reserved Reading location - IP/workstation name: [email or web address]
[2017-11-30 13:13] VITALS: BP 120/80
== END 2017-11-30 13:15 | disposition home or self-care (01) ==
LOC: ER 10:07
DX: J02.9 Acute pharyngitis, unspecified (principal); E04.1 Nontoxic single thyroid nodule; I10 Essential (primary) hypertension; Z88.0 Allergy status to penicillin
CPT/HCPCS: 99284; 96374; 96375; 36415; 87070; 84439; 87880; 84443; 85025; 85652; 86308; 80053; 84481; 71046; 70491; J1200; J2930

== ENCOUNTER 2018-03-01 13:20 | Emergency (ER) | payer BC ==
[2018-03-01] MEDS ORDERED: TETRACAINE HCL 0.5% OPH SOLN 4 ML OD ONE (13:59)
--- NOTE | 2018-03-01 13:59 | ER Document Report ---
HPI - HPI Patient complains to provider of: r eye pain Time Seen by Provider: 03/01/18 13:53 Onset: This morning Onset/Duration: Gradual Quality of pain: Burning Pain Level: 3 Context: Patient states she woke up around 4:00 this morning with right eye tenderness. Patient complains of tearing and continued eye pain with light sensitivity. Patient denies any contact lenses or use of glasses. Patient denies any known trauma to the eye. Associated Symptoms: Other - Right eye tenderness Exacerbated by: Denies Relieved by: Denies Similar symptoms previously: No Recently seen / treated by doctor: No - EENT EENT: REPORTS: Eye problems - NEURO Neurology: DENIES: Vision blurred - GASTROINTESTINAL Gastrointestinal: DENIES: Nausea, Patient vomiting - REPRODUCTIVE Reproductive: DENIES: : - DERM Skin Color: Normal Skin Problems: None Past Medical History - General Information source: Patient - Social History Smoking Status: Never Smoker Frequency of alcohol use: None Drug Abuse: None Occupation: Foodservice Lives with: Spouse/Significant other Family History: Arthritis, CAD, DM, Hypertension - Past Medical History Cardiac Medical History: Denies: Hx Coronary Artery Disease Pulmonary Medical History: Reports: Hx Asthma - as a child Renal/ Medical History: Reports: Hx Ovarian Cysts. Denies: Hx Peritoneal Dialysis Psychiatric Medical History: Reports: Hx Depression - April 2017 Past Surgical History: Reports: Hx Appendectomy, Hx Gynecologic Surgery - ovarian cyst removal - Immunizations Immunizations up to date: Yes Hx Diphtheria, Pertussis, Tetanus Vaccination: Yes Vertical Provider Document - CONSTITUTIONAL Agree With Documented VS: Yes Exam Limitations: No Limitations General Appearance: WD/WN, No Apparent Distress - INFECTION CONTROL TRAVEL OUTSIDE OF THE [place] IN LAST 30 DAYS: No - HEENT HEENT: Atraumatic, Normocephalic Notes: Extraocular movements intact, Jey. Patient with positive fluorescein uptake to the right eye the linear abrasion measuring about 3 mm. No foreign body, no ulcer, no dendrite - NECK Neck: Normal Inspection - RESPIRATORY Respiratory: No Respiratory Distress - MUSCULOSKELETAL/EXTREMETIES Musculoskeletal/Extremeties: MAEW - NEURO Level of Consciousness: Awake, Alert, Appropriate Motor/Sensory: No Motor Deficit - DERM Integumentary: Warm, Dry, No Rash Course - Vital Signs Vital signs: Temp Pulse Resp BP Pulse Ox 98.4 F 64 14 107/73 100 03/01/18 13:25 03/01/18 13:25 03/01/18 13:25 03/01/18 13:25 03/01/18 13:25 Discharge - Discharge Clinical Impression: Cornea abrasion Qualifiers: Encounter type: initial encounter Laterality: right Qualified Code(s): S05.01XA - Injury of conjunctiva and corneal abrasion without foreign body, right eye, initial encounter Condition: Stable Disposition: HOME, SELF-CARE Instructions: Antibiotic Therapy ([facility]), Corneal Abrasion ([facility]) Additional Instructions: Return immediately for any new or worsening symptoms Followup with ophthalmology for any persistent pain or problems Prescriptions: Erythromycin Base [E-Mycin 0.5% Oph Ointment 3.5 gm] 1 applic OD QID #1 tube Referrals: [facility] [Provider Group] - Follow up as needed
[2018-03-01 14:49] VITALS: BP 108/67
== END 2018-03-01 14:49 | disposition home or self-care (01) ==
LOC: ER 13:20
DX: S05.01XA Injury of conjunctiva and corneal abrasion without foreign body, right eye, initial encounter (principal); X58.XXXA Exposure to other specified factors, initial encounter
CPT/HCPCS: 99283; J3490

== ENCOUNTER 2019-08-14 21:11 | Emergency (ER) | payer BC ==
[2019-08-15 05:59] VITALS: BP 125/88
== END 2019-08-15 06:33 | disposition left against medical advice (07) ==
LOC: ER 21:11
DX: Z53.21 Procedure and treatment not carried out due to patient leaving prior to being seen by health care provider (principal)

== ENCOUNTER 2019-08-15 21:46 | Emergency (ER) | payer SELFPAY ==
--- NOTE | 2019-08-15 23:20 | ER Document Report ---
ED Medical Screen (RME) - General Chief Complaint: Leg Swelling Stated Complaint: RIGHT LEG SWELLING Time Seen by Provider: 08/15/19 23:15 TRAVEL OUTSIDE OF THE [place] IN LAST 30 DAYS: No - Related Data Allergies/Adverse Reactions: amoxicillin [Amoxicillin] Allergy (Mild, Verified 03/01/18 13:21) Penicillins Allergy (Mild, Verified 03/01/18 13:21) Past Medical History - Past Medical History Cardiac Medical History: Reports: Hx Hypertension Denies: Hx Coronary Artery Disease Pulmonary Medical History: Reports: Hx Asthma - as a child Endocrine Medical History: Denies: Hx Diabetes Mellitus Type 1, Hx Diabetes Mellitus Type 2 Renal/ Medical History: Reports: Hx Ovarian Cysts. Denies: Hx Peritoneal Dialysis Psychiatric Medical History: Reports: Hx Depression - April 2017 Past Surgical History: Reports: Hx Appendectomy, Hx Gynecologic Surgery - ovarian cyst removal - Immunizations Immunizations up to date: Yes Hx Diphtheria, Pertussis, Tetanus Vaccination: Yes Physical Exam - Vital signs Vitals: Temp Pulse Resp BP Pulse Ox 98.1 F 84 16 112/68 100 08/15/19 22:07 08/15/19 22:07 08/15/19 22:07 08/15/19 22:07 08/15/19 22:07 Course - Vital Signs Vital signs: Temp Pulse Resp BP Pulse Ox 98.1 F 84 16 112/68 100 08/15/19 22:07 08/15/19 22:07 08/15/19 22:07 08/15/19 22:07 08/15/19 22:07
--- NOTE | 2019-08-15 23:27 | ER Document Report ---
HPI - HPI Patient complains to provider of: Right leg pain Time Seen by Provider: 08/15/19 23:15 Severity: Mild Context: 39-year-old female with no previous medical problems presents to the emergency room complaining of pain and swelling to her right lower leg for the past month. Patient states she has been taking ibuprofen with some relief. She denies any trauma or injury to her leg. She denies any recent travel. 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 Not on oral contraceptives. Associated Symptoms: None Exacerbated by: Walking Relieved by: Denies Similar symptoms previously: No Recently seen / treated by doctor: No - ROS Systems Reviewed and Negative: Yes All other systems reviewed and negative - CONSTITUTIONAL Constitutional: DENIES: Fever - NEURO Neurology: DENIES: Weakness - GASTROINTESTINAL Gastrointestinal: DENIES: Nausea - REPRODUCTIVE Reproductive: DENIES: : - MUSCULOSKELETAL Musculoskeletal: REPORTS: Extremity pain - DERM Skin Color: Normal, [place] Past Medical History - General Information source: Patient - Social History Smoking Status: Never Smoker Frequency of alcohol use: Occasional Drug Abuse: None Family History: Arthritis, CAD, DM, Hypertension - Past Medical History Cardiac Medical History: Reports: Hx Hypertension Denies: Hx Coronary Artery Disease Pulmonary Medical History: Reports: Hx Asthma - as a child Endocrine Medical History: Denies: Hx Diabetes Mellitus Type 1, Hx Diabetes Mellitus Type 2 Renal/ Medical History: Reports: Hx Ovarian Cysts. Denies: Hx Peritoneal Dialysis Psychiatric Medical History: Reports: Hx Depression - April 2017 Past Surgical History: Reports: Hx Appendectomy, Hx Gynecologic Surgery - ovarian cyst removal - Immunizations Immunizations up to date: Yes Hx Diphtheria, Pertussis, Tetanus Vaccination: Yes Vertical Provider Document - CONSTITUTIONAL Agree With Documented VS: Yes Exam Limitations: No Limitations General Appearance: Mild Distress - INFECTION CONTROL TRAVEL OUTSIDE OF THE [place] IN LAST 30 DAYS: No - HEENT HEENT: Atraumatic, Normocephalic - NECK Neck: Normal Inspection, Supple, Thyroid Normal - RESPIRATORY Respiratory: Breath Sounds Normal, No Respiratory Distress, Chest Non-Tender - CARDIOVASCULAR Cardiovascular: Regular Rate, Regular Rhythm, No Murmur - MUSCULOSKELETAL/EXTREMETIES Musculoskeletal/Extremeties: FROM, Tender - Tenderness and mild swelling noted to the distal lateral aspect of the right lower extremity. No obvious deformity noted. - NEURO Level of Consciousness: Awake, Alert, Appropriate Motor/Sensory: No Motor Deficit, No Sensory Deficit Notes: Negative Homans, positive right pedal pulse. Capillary refill less than 3 seconds, ambulatory with a steady gait. Neurovascularly intact. - DERM Integumentary: Warm, Dry, No Rash Course - Re-evaluation Re-evalutation: 08/16/19 00:40 Patient is resting comfortably no acute distress at this time. Ambulatory with a steady gait. Reviewed x-ray results with patient. Unable to get ultrasound to rule out DVT at this time. Patient with low risk for DVT. Patient was concerned about a possible DVT although she has low risk factors and no history of previous DVTs, patient was counseled that she could return during the daytime for an ultrasound to rule out a DVT. Patient does not have significant risk factors that warrant starting her on anticoagulants prior to getting an ultrasound. She was counseled that she can follow-up with a primary care physician and/or an orthopedist as a outpatient. Call physicians were provided. Tylenol and/or Motrin as needed for pain. Patient was given strict return to the emergency room guidelines. Return for any new or worsening symptoms. All questions were answered. Patient verbalized understanding and agrees with plan of care. 08/16/19 00:53 08/16/19 01:04 - Vital Signs Vital signs: Temp Pulse Resp BP Pulse Ox 98.1 F 84 16 112/68 100 08/15/19 22:07 08/15/19 22:07 08/15/19 22:07 08/15/19 22:07 08/15/19 22:07 - Diagnostic Test Radiology reviewed: Reports reviewed Discharge - Discharge Clinical Impression: Right leg pain, Swelling of right lower extremity Condition: Stable Disposition: HOME, SELF-CARE Instructions: Leg Pain Nonspecific ([facility]) Additional Instructions: Rest, ice, elevate right leg. Take Tylenol and/or Motrin as needed for pain. Outpatient follow-up with a primary care physician or orthopedics as discussed. Return to the emergency room for any new or worsening symptoms. Referrals: TIM JARQUIN MD [COMMUNITY BASED STAFF] - Follow up as needed ADITI RED JR, DO [ACTIVE PROVISIONAL STAFF] - Follow up as needed
--- NOTE | 2019-08-16 00:38 | RADIOLOGY REPORT (SQ) ---
EXAM DESCRIPTION: X-ray, two views of the right tibia and fibula CLINICAL HISTORY: 39 years Female, pain/swelling COMPARISON: None. FINDINGS: Bone mineralization is normal. Alignment is anatomic. Tibia and fibula are intact. The knee and ankle are unremarkable. No radiopaque foreign body in the soft tissues. No air in the soft tissues. IMPRESSION: No acute process
[2019-08-16 01:01] VITALS: BP 116/62
== END 2019-08-16 01:01 | disposition home or self-care (01) ==
LOC: ER 21:46
DX: M79.661 Pain in right lower leg (principal); M79.89 Other specified soft tissue disorders; I10 Essential (primary) hypertension
CPT/HCPCS: 99283

== ENCOUNTER 2019-08-20 09:09 | Emergency (ER) | payer SELFPAY ==
[2019-08-20] MEDS ORDERED: BENZOCAINE/MENTHOL SORE THROAT LOZENGE BUCCAL ONE (12:18)
--- NOTE | 2019-08-20 12:21 | ER Document Report ---
ED General - General Chief Complaint: Sore Throat Stated Complaint: SORE THROAT,LEG PAIN, SWELLING Time Seen by Provider: 08/20/19 11:18 Notes: 39-year-old female with past medical history of today of leg infection and ovarian cyst presenting with 1 to 2 days of sore throat, fever, chills. States that she is not having any shortness of breath. States that the fever and the chills have resolved but she continues to have a sore throat. She denies any sinus congestion or postnasal drip. She also reports that her right leg has been swollen for 1 month. She denies any trauma. She denies occasional pain resolved with ibuprofen. Also reports which she describes as cramping on the anterior ankle. Last menstrual period was 1 month ago. She has no primary care provider. TRAVEL OUTSIDE OF THE [place] IN LAST 30 DAYS: No - Related Data Allergies/Adverse Reactions: amoxicillin [Amoxicillin] Allergy (Mild, Verified 03/01/18 13:21) Penicillins Allergy (Mild, Verified 03/01/18 13:21) Past Medical History - Social History Smoking Status: Never Smoker Family History: Arthritis, CAD, DM, Hypertension - Past Medical History Cardiac Medical History: Reports: Hx Hypertension Denies: Hx Coronary Artery Disease Pulmonary Medical History: Reports: Hx Asthma - as a child Endocrine Medical History: Denies: Hx Diabetes Mellitus Type 1, Hx Diabetes Mellitus Type 2 Renal/ Medical History: Reports: Hx Ovarian Cysts. Denies: Hx Peritoneal Dialysis Psychiatric Medical History: Reports: Hx Depression - April 2017 Past Surgical History: Reports: Hx Appendectomy, Hx Gynecologic Surgery - ovarian cyst removal - Immunizations Immunizations up to date: Yes Hx Diphtheria, Pertussis, Tetanus Vaccination: Yes Review of Systems - Review of Systems Constitutional: See HPI EENT: See HPI Cardiovascular: No symptoms reported Respiratory: No symptoms reported Gastrointestinal: No symptoms reported Genitourinary: No symptoms reported Female Genitourinary: No symptoms reported Musculoskeletal: See HPI Physical Exam - Vital signs Vitals: Temp Pulse Resp BP Pulse Ox 98.3 F 77 18 133/75 H 100 08/20/19 09:22 08/20/19 09:22 08/20/19 09:22 08/20/19 09:22 08/20/19 09:22 Interpretation: Normal - Notes Notes: Adult General: GENERAL: Alert, interacts well. No acute distress HEAD: Normocephalic, atraumatic EYES: Pupils equal, round and reactive to light. Extraocular movements intact. ENT: Oral mucosa moist, tongue midline. Oropharynx unremarkable. Airway patent. Nares patent, sinuses nontender, ear canals unremarkable, TMs intact. No Trismus. NECK: Full range of motion. Supple. Trachea midline. No lymphadenopathy. LUNGS: Clear to auscultation bilaterally, no wheezes, rales, or rhonchi. No respiratory distress. Nontender chest wall. HEART: Regular rate and rhythm. No murmurs, rubs or gallops. ABDOMEN: Soft, nontender. Nondistended. (-) Alta sign. Bowel sounds present in all 4 quadrants. No rebound, guarding or masses. GENITOURINARY: Deferred EXTREMITIES: Mild edema of left lower calf. No pitting edema. No erythematous. Non tender. (-) tia's sign. Moves all 4 extremities spontaneously. No edema, normal radial and dorsal pedis pulses bilaterally. No cyanosis. BACK: Moves all extremities with full range of motion. NEUROLOGICAL: Alert and oriented x3. Normal speech. Strength 5/ 5 in all extremities. PSYCH: Normal affect, normal mood. SKIN: Warm, dry, normal turgor. No rashes or lesions noted. Course - Re-evaluation Re-evalutation: 08/20/19 19:52 Doppler shows no DVT. Labs are unremarkable. I discussed the findings with this patient. Patient denies having any leg pain at this time. Her strep is negative. Suspect she has acute viral pharyngitis at this time. I do not have a good cause of her leg swelling at this time. I recommend that she follow-up with her primary care provider for further evaluation and treatment she does not have a primary care provider to establish care with one. I discussed with patient that she can follow-up with emergency department if she has worsening symptoms or development of new symptoms. Patient acknowledges and verbalizes understanding of instructions and plan. All questions answered. - Vital Signs Vital signs: Temp Pulse Resp BP Pulse Ox 99.3 F 59 L 20 114/66 100 08/20/19 18:09 08/20/19 18:09 08/20/19 18:09 08/20/19 18:08/20/19 18:09 - Laboratory Result Diagrams: 08/20/19 12:30 08/20/19 12:30 Laboratory results interpreted by me: 08/20/19 12:30 Sodium 136.2 L Discharge - Discharge Clinical Impression: Viral pharyngitis, Right leg swelling Condition: Stable Disposition: HOME, SELF-CARE Instructions: Acetaminophen, Upper Respiratory Illness ([facility]) Additional Instructions: Your exams have been reassuring today. You are lower extremity venous Doppler shows no DVT or SVT. I recommend that you follow-up with a primary care provider soon as possible. Please return the emergency department for worsening symptoms or the development of new symptoms.
[2019-08-20 12:50] LABS: ABSOLUTE EOSINOPHILS # (AUTO) 0.1 10^3/uL (0.0-0.6); ABSOLUTE LYMPHOCYTES (AUTO) 1.6 10^3/uL (0.5-4.7); ABSOLUTE MONOCYTES (AUTO) 0.3 10^3/uL (0.1-1.4); ABSOLUTE NEUT (AUTO) 2.7 10^3/uL (1.7-8.2); BASOPHILS % (AUTO) 0.5 % (0-2); EOSINOPHILS % (AUTO) 1.6 % (0-6); HEMATOCRIT 38.2 % (36.0-47.0); HEMOGLOBIN 12.9 g/dL (12.0-15.5); MEAN CORPUSCULAR HEMOGLOBIN 29.5 pg (27.0-33.4); MEAN CORPUSCULAR HGB CONC 33.8 g/dL (32.0-36.0); MEAN CORPUSCULAR VOLUME 87 fl (80-97); MONOCYTES % (AUTO) 7.2 % (3-13); PLATELET COUNT 234 10^3/uL (150-450); RED BLOOD COUNT 4.38 10^6/uL (3.72-5.28); RED CELL DISTRIBUTION WIDTH 13.5 % (11.5-14.0); SEGMENTED NEUTROPHILS % (AUTO) 56.7 % (42-78); TOTAL CELLS COUNTED % (AUTO) 100 %; WHITE BLOOD COUNT 4.8 10^3/uL (4.0-10.5)
[2019-08-20 13:18] LABS: ALBUMIN 4.2 g/dL (3.5-5.0); ALKALINE PHOSPHATASE 50 U/L (38-126); ANION GAP 7 (5-19); ASPARTATE AMINO TRANSFERASE 19 U/L (14-36); BILIRUBIN,TOTAL 0.5 mg/dL (0.2-1.3); BLOOD UREA NITROGEN 10 mg/dL (7-20); CALCIUM 9.4 mg/dL (8.4-10.2); CARBON DIOXIDE 25 mmol/L (22-30); CHLORIDE 104 mmol/L (98-107); GLUCOSE 106 mg/dL (75-110); POTASSIUM 3.8 mmol/L (3.6-5.0)
--- NOTE | 2019-08-20 17:45 | RADIOLOGY REPORT (SQ) ---
EXAM DESCRIPTION: VENOUS UNILATERAL LOWER IMAGES COMPLETED DATE/TIME: 08/20/2019 5:00 pm REASON FOR STUDY: right leg COMPARISON: None. TECHNIQUE: Dynamic and static ortez scale and color images acquired of the right leg venous system. S elected spectral images acquired with additional compression and augmentation maneuvers. The contrala teral common femoral vein and saphenofemoral junction were also imaged. Images stored on PACS. LIMITATIONS: None. FINDINGS: COMMON FEMORAL: Normal phasicity, compression and augmentation. No visualized echogenic ma terial on ortez scale. No defects on color images. FEMORAL: Normal compression and augmentation. No visualized echogenic material on ortez scale. No defe cts on color images. POPLITEAL: Normal compression, augmentation. No visualized echogenic material on ortez scale. No defec ts on color images. CALF VESSELS: Normal compression, augmentation. No visualized echogenic material on ortez scale. No de fects on color images. GSV and SSV: Normal compression, augmentation. No visualized echogenic material on ortez scale. No def ects on color images. ANY DEEP VENOUS INSUFFICIENCY: Not evaluated. ANY EVIDENCE OF POPLITEAL CYST: No. OTHER: No other significant finding. CONTRALATERAL COMMON FEMORAL VEIN AND SAPHENOFEMORAL JUNCTION: Normal phasicity, compression and augmentation. No visualized echogenic material on ortez scale. No de fects on color images. IMPRESSION: NO EVIDENCE DVT OR SVT IN THE RIGHT LEG. TECHNICAL DOCUMENTATION: JOB ID: [id number] 2010 [employer]- All Rights Reserved Reading location - IP/workstation name: [email or web address]
[2019-08-20 18:10] VITALS: BP 114/66
== END 2019-08-20 18:11 | disposition home or self-care (01) ==
LOC: ER 09:09
DX: J02.8 Acute pharyngitis due to other specified organisms (principal); B97.89 Other viral agents as the cause of diseases classified elsewhere; M79.89 Other specified soft tissue disorders; R25.2 Cramp and spasm; R60.0 Localized edema; I10 Essential (primary) hypertension; Z88.0 Allergy status to penicillin
CPT/HCPCS: 36415; 80053; 85025; 87070; 87880; 93971; 99284